=== PATIENT | female | born 1940 | race Caucasian/White ===

== ENCOUNTER 2022-12-01 12:08 | Emergency (ER) | payer OTHER, MEDICARE ==
[2022-12-01 12:24] VITALS: BP 141/76; PULSE 77; RESP 18; TEMP 98.1; BMI 24.6
== END 2022-12-01 14:25 | disposition home or self-care (01) ==
LOC: FER 12:08
DX: S09.90XA Unspecified injury of head, initial encounter (principal); S00.81XA Abrasion of other part of head, initial encounter; W01.0XXA Fall on same level from slipping, tripping and stumbling without subsequent striking against object, initial encounter; Y92.480 Sidewalk as the place of occurrence of the external cause
CPT/HCPCS: 70450-TC; 72125-TC; 99284-25

== ENCOUNTER 2022-12-16 12:00 | Emergency (ER) | payer OTHER, MEDICARE ==
[2022-12-16 12:11] VITALS: BP 117/75; PULSE 77; RESP 18; TEMP 98.2; BMI 24.6
[2022-12-16] MEDS ORDERED: ACETAMINOPHEN 325 MG TABLET (FP) PO ONE (12:33)
[2022-12-16] MEDS ORDERED: ACETAMINOPHEN 325 MG TABLET (FP) ONE (12:36)
[2022-12-16] MEDS ORDERED: LIDO 2%/EPI 1:200000 PRESRVFRE (20 ML SDVIAL) ONE (13:42)
[2022-12-16] MEDS ORDERED: LIDOCAINE HCL/EPINEPHRINE/PF 10 ML VIAL NR ONE (13:42)
[2022-12-16] MEDS ORDERED: CEPHALEXIN MONOHYDRATE 500 MG CAPSULE (UD) PO ONE (14:58)
[2022-12-16] MEDS ORDERED: CEPHALEXIN MONOHYDRATE 500 MG CAPSULE (UD) ONE (15:10)
== END 2022-12-16 15:18 | disposition home or self-care (01) ==
LOC: FER 12:00
DX: S09.90XA Unspecified injury of head, initial encounter (principal); S02.2XXA Fracture of nasal bones, initial encounter for closed fracture; S01.81XA Laceration without foreign body of other part of head, initial encounter; S00.31XA Abrasion of nose, initial encounter; W01.0XXA Fall on same level from slipping, tripping and stumbling without subsequent striking against object, initial encounter
CPT/HCPCS: 70450-TC; 70486-TC; 73562-TC-RT-FY; 99285-25

== ENCOUNTER 2023-08-18 12:41 | Emergency (ER) | payer OTHER, MEDICARE ==
[2023-08-18 13:00] VITALS: BP 132/70; PULSE 85; RESP 14; TEMP 98.1; BMI 28.5
== END 2023-08-18 14:58 | disposition home or self-care (01) ==
LOC: FER 12:41
DX: S09.90XA Unspecified injury of head, initial encounter (principal); W01.198A Fall on same level from slipping, tripping and stumbling with subsequent striking against other object, initial encounter
CPT/HCPCS: 70450-TC; 72100-TC-FY; 72125-TC; 99284-25

== ENCOUNTER 2024-05-13 18:58 | Inpatient (IN) | payer OTHER, MEDICARE ==
[2024-05-13 19:08] VITALS: RESP 18
[2024-05-13 21:16] LABS: HEMATOCRIT 42.4 % (32.4-45.2); HEMOGLOBIN 13.5 G/dL (10.7-15.3); MCH 27.1 pg (25.7-33.7); MCHC 31.7 g/dl (32.0-36.0); MEAN CELL VOLUME 85.4 fl (80-96); MEAN PLT VOLUME 9.2 fl (7.5-11.1); PLATELET COUNT 195.2 10^3/uL (134-434); RBC 4.97 10^6/uL (3.60-5.2); RDW 15.8 % (11.6-15.6); WHITE BLOOD COUNT 6.7 10^3/uL (4.0-10.8)
[2024-05-13 21:22] LABS: INR 1.02 (0.83-1.09); PLATELET ESTIMATE ADEQUATE; PROTHROMBIN TIME (PATIENT) 11.6 SEC (9.7-13.0)
[2024-05-13 21:31] LABS: ALBUMIN 4.4 g/dl (3.4-5.0); BILIRUBIN,TOTAL 0.5 mg/dl (0.2-1); CALCIUM 9.5 mg/dl (8.5-10.1); CREATININE 0.7 mg/dl (0.6-1.3); POTASSIUM 4.1 mmol/L (3.5-5.1); TOT PROT 6.4 g/dl (6.4-8.2)
[2024-05-13] MEDS: BACITRACIN ZINC 15 GM TUBE TOPICAL OINTMENT TP SCH (23:56)
[2024-05-14 03:04] VITALS: BMI 27.1
[2024-05-14 07:25] LABS: EPITHELIAL CELLS 0-5 /hpf
[2024-05-14 07:46] LABS: HEMATOCRIT 40.1 % (32.4-45.2); HEMOGLOBIN 12.5 G/dL (10.7-15.3); MCH 26.4 pg (25.7-33.7); MCHC 31.2 g/dl (32.0-36.0); MEAN CELL VOLUME 84.7 fl (80-96); MEAN PLT VOLUME 9.1 fl (7.5-11.1); PLATELET COUNT 170.5 10^3/uL (134-434); RBC 4.74 10^6/uL (3.60-5.2); RDW 16.1 % (11.6-15.6); WHITE BLOOD COUNT 5.3 10^3/uL (4.0-10.8)
[2024-05-14 08:44] LABS: CALCIUM 8.8 mg/dl (8.5-10.1); CREATININE 0.7 mg/dl (0.6-1.3); PHOSPHOROUS 3.2 (2.5-4.9); POTASSIUM 3.8 mmol/L (3.5-5.1)
[2024-05-14] MEDS: LATANOPROST 0.005% OPHTH SOLN 2.5ML BOTTLE OD SCH ×2 (09:09→21:27)
[2024-05-14] MEDS ORDERED: SERTRALINE HCL 25 MG TABLET (FP) PO SCH (10:00)
[2024-05-14] MEDS: SERTRALINE HCL 50 MG TABLET (FP) PO SCH (21:27)
[2024-05-15 10:33] VITALS: BP 122/86; PULSE 73; TEMP 97.5
== END 2024-05-15 11:10 | disposition home or self-care (01) | DRG 605 ==
LOC: FER 18:58 → FM/S 22:44 → UNDOADMIN 23:48
PROVIDERS: ADMIT Internal Medicine; ATTEND Internal Medicine
DX: S00.81XA Abrasion of other part of head, initial encounter (principal); R29.6 Repeated falls; H40.9 Unspecified glaucoma; M25.532 Pain in left wrist; M79.642 Pain in left hand; F32.A Depression, unspecified; S60.012A Contusion of left thumb without damage to nail, initial encounter; W01.0XXA Fall on same level from slipping, tripping and stumbling without subsequent striking against object, initial encounter; Y92.89 Other specified places as the place of occurrence of the external cause; Y99.9 Unspecified external cause status
CPT/HCPCS: 36415; 70450-TC; 72125-TC; 73110-TC-LT-FY; 73130-TC-LT-FY; 73560-TC-LT-FY; 73562-TC-RT-FY; 80048; 80053; 81003; 81015; 82607; 82746; 84100; 84443; 84484; 85027; 85379; 85610; 87635; 93005; 93306-TC; 93880-TC; 97116-GP; 97162-GP; 99285-25

== ENCOUNTER 2024-10-01 09:38 | Observation (INO) | payer OTHER, MEDICARE ==
[2024-10-01 11:08] LABS: HEMATOCRIT 40.7 % (32.4-45.2); HEMOGLOBIN 13.4 G/dL (10.7-15.3); MCH 26.8 pg (25.7-33.7); MEAN CELL VOLUME 81.4 fl (80-96); MEAN PLT VOLUME 9.6 fl (7.5-11.1); PLATELET COUNT 177.3 10^3/uL (134-434); RDW 16.8 % (11.6-15.6); WHITE BLOOD COUNT 7.6 10^3/uL (4.0-10.8)
[2024-10-01 11:10] LABS: INR 1.04 (0.83-1.09); PROTHROMBIN TIME (PATIENT) 11.8 SEC (9.7-13.0)
[2024-10-01 11:16] LABS: ALBUMIN 4.3 g/dl (3.4-5.0); ALK PHOS 62 U/L (45-117); ANION GAP 10 mmol/L (4-13); BILIRUBIN,TOTAL 0.6 mg/dl (0.2-1); CALCIUM 9.4 mg/dl (8.5-10.1); CHLORIDE 104 mmol/L (98-107); CO2 26 mmol/L (21-32); CREATININE 0.6 mg/dl (0.6-1.3); GLUCOSE,RANDOM 100 mg/dl (74-106); MAGNESIUM 2.1 mg/dL (1.8-2.4); PHOSPHOROUS 2.9 (2.5-4.9); POTASSIUM 3.7 mmol/L (3.5-5.1); SGOT/AST 16 U/L (15-37); SGPT/ALT 15 U/L (7-52); SODIUM 140 mmol/L (136-145); TOT PROT 6.4 g/dl (6.4-8.2)
[2024-10-01 13:36] LABS: ANISOCYTOSIS 1+; OVALOCYTE OCCASIONAL
[2024-10-01 13:37] LABS: PLATELET ESTIMATE ADEQUATE
[2024-10-01] MEDS ORDERED: IBUPROFEN 600 MG TABLET (FP) PO ONE (14:09)
[2024-10-01] MEDS: IBUPROFEN 600 MG TABLET (FP) PO ONE (14:16)
[2024-10-01 16:12] VITALS: BMI 27.1
[2024-10-01] MEDS: LATANOPROST 0.005% OPHTH SOLN 2.5ML BOTTLE OU SCH (22:52)
[2024-10-02] MEDS: ACETAMINOPHEN 500 MG TABLET (FP) PO PRN (06:28)
[2024-10-02 08:17] LABS: HEMATOCRIT 38.9 % (32.4-45.2); HEMOGLOBIN 12.9 G/dL (10.7-15.3); MCHC 33.2 g/dl (32.0-36.0); MEAN CELL VOLUME 81.3 fl (80-96); MEAN PLT VOLUME 10.2 fl (7.5-11.1); RBC 4.78 10^6/uL (3.60-5.2); RDW 16.5 % (11.6-15.6); WHITE BLOOD COUNT 4.7 10^3/uL (4.0-10.8)
[2024-10-02 09:14] LABS: PLATELET ESTIMATE ADEQUATE
[2024-10-02] MEDS: LIDOCAINE 5% TOPICAL PATCH TP SCH (09:19)
[2024-10-02] MEDS: SERTRALINE HCL 50 MG TABLET (FP) PO SCH (09:19)
[2024-10-02 09:30] LABS: CALCIUM 8.7 mg/dl (8.5-10.1); CREATININE 0.6 mg/dl (0.6-1.3); PHOSPHOROUS 3.3 (2.5-4.9); POTASSIUM 4.1 mmol/L (3.5-5.1)
[2024-10-02] MEDS: IBUPROFEN 600 MG TABLET (FP) PO ONE (13:15)
[2024-10-02 13:16] VITALS: BP 136/74; PULSE 77; RESP 16; TEMP 98.1
[2024-10-02] MEDS ORDERED: LIDOCAINE PATCH REMOVAL MC SCH (22:00)
== END 2024-10-02 13:16 | disposition home or self-care (01) ==
LOC: FER 09:38 → FM/S 14:27
PROVIDERS: ADMIT Internal Medicine; ATTEND Internal Medicine
DX: R55 Syncope and collapse (principal); F32.9 Major depressive disorder, single episode, unspecified; R29.6 Repeated falls; N63.0 Unspecified lump in unspecified breast; H40.9 Unspecified glaucoma; W18.39XA Other fall on same level, initial encounter; Y93.89 Activity, other specified; Y92.008 Other place in unspecified non-institutional (private) residence as the place of occurrence of the external cause
CPT/HCPCS: 36415; 70450-TC; 71045-TC-FY; 71275-TC; 72125-TC; 80048; 80053; 83735; 84100; 84484; 85025; 85379; 85610; 85730; 86850; 86900; 86901; 93005; 99285-25; G0378; Q9967